=== PATIENT | female | born 1995 | race Caucasian/White ===

== ENCOUNTER 2018-03-03 19:06 | Emergency (ER) | payer SELFPAY, MEDICAID | END 2018-03-03 20:14 | disposition home or self-care (01) | LOC: FTE 19:06 | DX: B86 Scabies (principal); S80.861A Insect bite (nonvenomous), right lower leg, initial encounter; S80.862A Insect bite (nonvenomous), left lower leg, initial encounter; S40.861A Insect bite (nonvenomous) of right upper arm, initial encounter; S40.862A Insect bite (nonvenomous) of left upper arm, initial encounter; F17.210 Nicotine dependence, cigarettes, uncomplicated; W57.XXXA Bitten or stung by nonvenomous insect and other nonvenomous arthropods, initial encounter; Y92.9 Unspecified place or not applicable | CPT/HCPCS: 99283 ==

== ENCOUNTER 2018-04-02 18:04 | Emergency (ER) | payer SELFPAY | END 2018-04-02 20:30 | disposition home or self-care (01) | LOC: FTE 18:04 | DX: Z48.01 Encounter for change or removal of surgical wound dressing (principal); Z87.891 Personal history of nicotine dependence | CPT/HCPCS: 99281 ==

== ENCOUNTER 2018-07-19 18:34 | Emergency (ER) | payer SELFPAY | END 2018-07-19 19:54 | disposition home or self-care (01) | LOC: FTE 18:34 | DX: J01.90 Acute sinusitis, unspecified (principal); Z87.891 Personal history of nicotine dependence | CPT/HCPCS: 99283 ==

== ENCOUNTER 2018-10-10 11:16 | Emergency (ER) | payer SELFPAY | END 2018-10-10 13:01 | disposition home or self-care (01) | LOC: FTE 13:01 | DX: L05.02 Pilonidal sinus with abscess (principal); F17.210 Nicotine dependence, cigarettes, uncomplicated | CPT/HCPCS: 99283 ==